=== PATIENT | female | born 1945 | race Caucasian/White ===

== ENCOUNTER 2019-06-02 23:02 | Emergency (ER) | payer MEDICARE ==
[~2019-06-02] VITALS: Ht 162.6 cm; Wt 59.0 kg
[2019-06-02 23:15] LABS: Chloride (POC) 102 mmol/L (98-108); Creatinine (POC) 1.3 mg/dL (0.6-1.0); Glucose (ISTAT POC) 150 mg/dL (70-99); Hemoglobin (POC) 12.2 g/dL (12.0-16.0); Potassium (POC) 3.4 mmol/L (3.5-5.5); Sodium (POC) 138 mmol/L (135-148); Total CO2 (POC) 26 mmol/L (21-32)
[2019-06-02 23:19] LABS: Source, Urine Clean Catch
[2019-06-02 23:21] LABS: BASOPHILS ABSOLUTE AUTO 0.03 K/mm3 (0.00-0.23); BASOPHILS PERCENT AUTO 1 % (0-2); EOSINOPHILS ABSOLUTE AUTO 0.27 K/mm3 (0.00-0.68); EOSINOPHILS PERCENT AUTO 5 % (0-6); Hematocrit 37.2 % (33.0-51.0); Hemoglobin 12.6 g/dL (11.5-16.0); IMMATURE GRAN ABSOLUTE AUTO 0.01 K/mm3 (0.00-0.10); IMMATURE GRAN PERCENT AUTO 0 % (0-1); LYMPHOCYTES ABSOLUTE AUTO 1.51 K/mm3 (0.84-5.20); LYMPHOCYTES PERCENT AUTO 27 % (21-46); MONOCYTES ABSOLUTE AUTO 0.36 K/mm3 (0.16-1.47); MONOCYTES PERCENT AUTO 6 % (4-13); Mean Corpuscular HGB 29.7 pg (26.0-34.0); Mean Corpuscular HGB Conc 33.9 g/dL (31.5-36.5); Mean Corpuscular Volume 88 fL (80-100); Mean Platelet Volume 9.9 fL (9.1-12.4); NEUTROPHILS ABSOLUTE AUTO 3.49 K/mm3 (1.96-9.15); NEUTROPHILS PERCENT AUTO 62 % (41-73); Platelet Count 187 K/mm3 (150-400); RDW Coefficient Variation 12.8 % (11.7-14.2); RDW Standard Deviation 41.5 fL (35.1-46.3); Red Blood Cell Count 4.24 M/mm3 (3.80-5.20); White Blood Cell Count 5.67 K/mm3 (4.00-11.30)
[2019-06-02 23:23] LABS: Bilirubin, Urine Neg (Neg); Blood, Urine 1+ (Neg); Glucose Qualitative, Urine Neg (Neg); Ketones, Urine Neg (Neg); Leukocyte Esterase, Urine 1+ (Neg); Nitrite, Urine Pos (Neg); Protein, Urine Neg (Neg); Urobilinogen, Urine NORM (Normal)
[2019-06-02 23:26] LABS: Appearance, Urine Clear (Clear); Color, Urine No Color (P-Yellow)
[2019-06-02 23:34] LABS: U Amphetamine Screen Not Detected; U Barbituate Screen Not Detected; U Benzodiazapine Screen Not Detected; U Buprenorphine Screen Not Detected; U Cannabinoids Screen Not Detected; U Cocaine Screen Not Detected; U Methadone Screen Not Detected; U Methamphetamine Screen Not Detected; U Opiates Screen Not Detected; U Oxycodone Screen Not Detected; U Phencyclidine Screen Not Detected; U Propoxyphene Screen Not Detected
[2019-06-02 23:35] LABS: Bacteria Many /hpf; Red Blood Cells, Urine Not Seen /hpf (0-2); Squamous Epithelial Cells Not Seen /hpf (Few); White Blood Cells, Urine 0-2 /hpf (0-5)
[2019-06-02] MEDS ORDERED: LOSARTAN-HCTZ1 EAC1 PO (23:40)
[2019-06-02] MEDS ORDERED: INSULANPEN (23:40)
[2019-06-02] MEDS ORDERED: Metformin HCl1000 MG PO (23:40)
[2019-06-02] MEDS ORDERED: ROSUVASTATIN CA40 MG PO (23:41)
[2019-06-02] MEDS ORDERED: ELIQUIS5 M2 PO (23:42)
[2019-06-02 23:44] LABS: Alanine Aminotransfer (ALT/SGP 29 U/L (12-78); Albumin, Blood 3.9 g/dL (3.4-5.0); Albumin/Globulin Ratio 1.1 (0.8-1.8); Alk Phos 85 U/L (50-136); Anion Gap 9 mmol/L (6-16); Aspartate Aminotrans (AST/SGOT 27 U/L (12-37); Bilirubin, Total 0.7 mg/dL (0.1-1.0); Blood Urea Nitrogen 27 mg/dL (8-24); Bun/Creatinine Ratio 32.7 (12.0-20.0); CO2, Blood 26 mmol/L (21-32); Calcium, Blood 8.8 mg/dL (8.5-10.1); Chloride, Blood 104 mmol/L (98-108); Creatinine, Blood 0.83 mg/dL (0.40-1.00); Ethanol (Alcohol), Blood, Med 223 mg/dL; Globulin, Blood 3.7 g/dL (2.2-4.0); Glomerular Filtration Rate >60 (60-); Glucose, Blood 148 mg/dL (70-99); Potassium, Blood 3.5 mmol/L (3.5-5.5); Salicylate <1.7 mg/dL (2.8-20.0); Sodium, Blood 139 mmol/L (136-145); Total Protein, Blood 7.6 g/dL (6.4-8.2)
[2019-06-02 23:52] LABS: Acetaminophen, Random <2.0 ug/mL (10.0-30.0)
== END 2019-06-03 04:25 | disposition home or self-care (01) ==
LOC: ER 23:02
PROVIDERS: Emergency Medicine
DX: R55 Syncope and collapse (principal); R51 Headache; E11.9 Type 2 diabetes mellitus without complications; I10 Essential (primary) hypertension; I48.91 Unspecified atrial fibrillation; Z88.0 Allergy status to penicillin; Z88.8 Allergy status to other drugs, medicaments and biological substances; Z79.899 Other long term (current) drug therapy; Z79.4 Long term (current) use of insulin; Z79.01 Long term (current) use of anticoagulants
CPT/HCPCS: 51702; 70450; 71045; 80047; 80053; 81001; 81025; 82550; 84443; 85014; 85025; 87077; 87086; 87186; 93005; 93010; 96361; 96374; 96375; 99285-25; G0480; J2405; J3010; J7030

== ENCOUNTER 2021-06-18 04:56 | Observation (INO) | payer MEDICARE ==
[~2021-06-18] VITALS: Ht 157.5 cm; Wt 64.4 kg
[~2021-06-18 04:56] MED LIST: ELIQUIS5 M2 PO; INSULANPEN SC; LOSARTAN-HCTZ1 EAC1 PO; Metformin HCl1000 MG PO; ROSUVASTATIN CA40 MG PO
[2021-06-18] MEDS ORDERED: LOSA50 PO (05:16)
[2021-06-18] MEDS ORDERED: VITAMIN D-40010 MC1 PO (05:16)
[2021-06-18] MEDS ORDERED: ASPI325 (05:17)
[2021-06-18 05:23] LABS: BASOPHILS ABSOLUTE AUTO 0.03 K/mm3 (0.00-0.23); BASOPHILS PERCENT AUTO 1 % (0-2); EOSINOPHILS ABSOLUTE AUTO 0.21 K/mm3 (0.00-0.68); EOSINOPHILS PERCENT AUTO 4 % (0-6); Hematocrit 37.1 % (33.0-51.0); Hemoglobin 12.7 g/dL (11.5-16.0); IMMATURE GRAN ABSOLUTE AUTO 0.01 K/mm3 (0.00-0.10); IMMATURE GRAN PERCENT AUTO 0 % (0-1); LYMPHOCYTES PERCENT AUTO 27 % (21-46); MONOCYTES ABSOLUTE AUTO 0.43 K/mm3 (0.16-1.47); MONOCYTES PERCENT AUTO 8 % (4-13); Mean Corpuscular HGB 29.7 pg (26.0-34.0); Mean Corpuscular HGB Conc 34.2 g/dL (31.5-36.5); Mean Corpuscular Volume 87 fL (80-100); NEUTROPHILS ABSOLUTE AUTO 3.12 K/mm3 (1.96-9.15); NEUTROPHILS PERCENT AUTO 60 % (41-73); Platelet Count 173 K/mm3 (150-400); RDW Coefficient Variation 12.4 % (11.7-14.2); RDW Standard Deviation 39.6 fL (35.1-46.3); Red Blood Cell Count 4.28 M/mm3 (3.80-5.20)
[2021-06-18 05:42] LABS: Anion Gap 6 mmol/L (6-16); Blood Urea Nitrogen 27 mg/dL (8-24); Bun/Creatinine Ratio 29.2 (12.0-20.0); CO2, Blood 25 mmol/L (21-32); Calcium, Blood 8.9 mg/dL (8.5-10.1); Chloride, Blood 109 mmol/L (98-108); Creatinine, Blood 0.93 mg/dL (0.40-1.00); Glomerular Filtration Rate 59 (60-); Glucose, Blood 138 mg/dL (70-99); Potassium, Blood 3.7 mmol/L (3.5-5.5); Sodium, Blood 140 mmol/L (136-145); Troponin I <0.015 ng/mL (0.000-0.040)
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
--- NOTE | 2021-06-18 17:19 | NUR ---
a+o, sitting up talking to family, denies cp, receptionist telephone operator reports [place] in 80's, cooperative with treatments, call light in reach, saline locked on rm air, will continue to monitor and treat until share bsr with noc nurse
--- NOTE | 2021-06-19 05:29 | NUR ---
END OF SHIFT SUMMARY: No acute events overnight. Pt denies SOB, CP, nor any discomfort. She is SR on tele in 70's BPM. Able to voice needs. Call light within reach. Bed in lowest position.
--- NOTE | 2021-06-19 17:09 | NUR ---
SHIFT SUMMARY ALERT AND ORIENTED X4. PLEASENT AND COOPERATIVE WITH CARE. NO ACUTE EVENTS THIS SHIFT. PATIENT HAS COMPLAINED ABOUT HEADACHE THAT WAS MEDICATED WITH TYLENOL TWICE THIS SHIFT. NO OTHER COMPLAINTS OF PAIN, NAUSEA, SOB. VITAL SIGNS REVIEWED. PATIENT HAS HAD DAY 1 OF NUCLEAR MEDICINE STUDY. PATIENT TO BE NPO AFTER MIDNIGHT AND NO CAFFEINE AFTER 1999. VITAL SIGNS REVIEWED. WILL CONTINUE TO MONITOR UNTIL SHIFT CHANGE.
--- NOTE | 2021-06-20 03:30 | NUR ---
Pt's tele monitor is having poor connection tonight. unable to stay connected after all interventions to make it work inclusing chnaging out monitor, stickers, leaving room door open and placing it in different angles. Pt has had no complaints of chest pain. She has been NSR the times that she has been connected. HR regular on auscultation, normal S1S2. Denies any discomfort. All medical floor rooms occupied at this time. notified of tele connection problem. Pt to be moved to the next available room with good connection. Monitor pt for now.
--- NOTE | 2021-06-20 13:41 | NUR ---
Patient tells me that she is in the DC process. She explains about how well she is feeling and and her plans to manage her medical issues moving forward. She talks about her family and the supportshe is getting from her daughter. I encourage self-care, and provide therapeutic listening and a blessing as she leaves.
--- NOTE | 2021-06-20 14:07 | NUR ---
SUMMARY/DISCHARGE PT DISCHARGED TO HOME AFTER HER STRESS TEST WAS NEGATIVE, PT VERBALIZED UNDERSTANDING OF DISCHARGE INSTRUCTIONS REGARDING ESTABLISHING A NEW PCP LOCALLY, PT TAKEN OUT SAFELY VIA WHEELCHAIR
== END 2021-06-20 13:55 | disposition home or self-care (01) ==
LOC: ER 04:56 → MEDS 04:57
PROVIDERS: Student in an Organized Health Care Education/Training Program; ADMIT Internal Medicine
DX: R07.9 Chest pain, unspecified (principal); I10 Essential (primary) hypertension; E11.9 Type 2 diabetes mellitus without complications; Z88.0 Allergy status to penicillin; Z88.8 Allergy status to other drugs, medicaments and biological substances; Z79.4 Long term (current) use of insulin; Z87.891 Personal history of nicotine dependence
CPT/HCPCS: 36415; 71045; 78452; 80048; 82947; 83735; 84484; 85025; 90686; 93005; 93010; 93017; 99285-25; A9270; A9500; G0008; G0378; J0706; J1815; J2785